=== PATIENT | female | born 1980 | race African-American/Black ===

== ENCOUNTER 2018-11-23 22:59 | Emergency (ER) | payer BC ==
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
--- NOTE | 2018-11-25 11:41 | RAD REPORT ---
EXAM DESCRIPTION: Facial Bones W/ Mpr EXAM DESCRIPTION: Facial Bones W/ Mpr CLINICAL HISTORY: 37 years Female FACIAL PAIN COMPARISON: None TECHNIQUE: Images were obtained in axial, sagittal, and coronal planes. This exam was performed according to our departmental dose-optimization program which includes use of Automated Exposure Control, adjustment of the mA and/or kV according to patient size and/or use of i terative reconstruction technique. FINDINGS: No nasal bone fracture. Anterior maxillary spine is intact. No fractures orbits bilaterally. Zygomatic arches are intact bilaterally. No air-fluid levels seen. L obular mucosal thickening left maxillary antrum. Mild mucosal thickening right frontal, bilateral eth moid, and sphenoid sinuses. No mandibular fracture. Pterygoid plates intact bilaterally. Large dental caries right upper tooth. Intact odontoid and predental space. Prominent prevertebral soft tissues. IMPRESSION: No acute fracture or dislocation seen. Large dental caries right upper tooth possibly fi rst molar. No abnormality right temporal bone. Electronically signed by: Jenae Reyes MD 11/24/2018 12:19 AM CDT Due to temporary technical issues with the PACS/Fluency reporting system, reports are being signed by the in house radiologist as a courtesy to ensure prompt reporting. The interpreting radiologist is f ully responsible for the content of the report.
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
== END 2018-11-24 01:17 | disposition home or self-care (01) ==
LOC: ER 22:59
DX: T70.0XXA Otitic barotrauma, initial encounter (principal); S00.83XA Contusion of other part of head, initial encounter; Y04.0XXA Assault by unarmed brawl or fight, initial encounter
CPT/HCPCS: 70450; 70486; 76377; 99283